=== PATIENT | male | born 1950 | race Caucasian/White ===

== ENCOUNTER 2018-05-26 19:30 | Emergency (ER) | payer MEDICARE ==
[~2018-05-26] VITALS: Ht 182.9 cm; Wt 76.2 kg
--- OUTSIDE RECORDS SUMMARY | ~2018-05-26 | XMS | Clinical Summary ---
Demographics + + + | Address | [address] | | | [place] [address] | + + + | Home Phone | | + + + | Preferred Language | Unknown | + + + | Marital Status | Unknown | + + + | Orthodoxy Affiliation | Unknown | + + + | Race | Unknown | + + + | Ethnic Group | Unknown | + + + Author + + + | Author | [facility] | | | and [place] | + + + | Organization | [facility] | | | and [place] | + + + | Address | Unknown | + + + | Phone | Unavailable | + + + Care Team Providers + +------+ + | Care Lab Head Name | Role | Phone | + +------+ + PP | Unavailable | + +------+ + Allergies Not on File Medications Not on file Active Problems Not on file Social History + +-------+ +--------+------+ | Tobacco Use | Types | Packs/Day | Years | Date | | | | | Used | | + +-------+ +--------+------+ | Never Assessed | | | | | + +-------+ +--------+------+ + + + | Sex Assigned at | Date Recorded | | | | + + + | Not on file | | + + + + + + + | Job Start Date | Occupation | Industry | + + + + | Not on file | Not on file | Not on file | + + + + + + + + | Travel History | Travel Start | Travel End | + + + + + + | No recent travel history available. | + + Plan of Treatment + + + + + | Health Maintenance | Due Date | Last Done | Comments | + + + + + | Vaccine: | | | | | Dtap/Tdap/Td (1 - | 2 | | | | Tdap) | | | | + + + + + | Vaccine: Zoster (1 | | | | | of 2) | 3 | | | + + + + + | Vaccine: | | | | | Pneumococcal 65+ | 8 | | | | Low/Medium Risk (1 | | | | | of 2 - PCV13) | | | | + + + + + | Vaccine: Influenza | | | | | (Season Ended) | 9 | | | + + + + + Results Not on filefrom Last 3 Months"
--- OUTSIDE RECORDS SUMMARY | ~2018-05-26 | XMS | Clinical Summary ---
Demographics + + + | Address | [address] | | | [place] [address] | + + + | Home Phone | | + + + | Preferred Language | Unknown | + + + | Marital Status | Unknown | + + + | Moravian Affiliation | Unknown | + + + | Race | Unknown | + + + | Ethnic Group | Unknown | + + + Author + + + | Author | [facility] | | | and [place] | + + + | Organization | [facility] | | | and [place] | + + + | Address | Unknown | + + + | Phone | Unavailable | + + + Care Team Providers + +------+ + | Care Resolution Agent Name | Role | Phone | + [...]
[~2018-05-26 19:30] MED LIST: METOPROLOL SUCC25 MG PO; PREDNISONE20 MG PO; PRILOSEC20 MG PO
[2018-05-26] MEDS ORDERED: ZANTAC 7575 MG PO (19:50)
--- NOTE | 2018-05-27 07:56 | EKG ---
[facility] [address] [address] Signed Sinus rhythm with 1st degree AV block Otherwise normal ECG No previous ECGs available Confirmed by ROGELIO FREGOSO MD ([id number]) on 05/27/2018 7:56:34 AM Electronically Signed By: ROGELIO FREGOSO MD 05/27/18 0756 PATIENT NAME: EMILIO YEBOAH Electrocardiogram DATE OF : 54 PHYSICIAN: ROGELIO FREGOSO MD REPORT #: [id number] REPORT IS CONFIDENTIAL AND NOT TO BE RELEASED WITHOUT AUTHORIZATION
== END 2018-05-26 21:25 | disposition home or self-care (01) ==
LOC: ED 19:30
DX: R06.00 Dyspnea, unspecified (principal); Z88.0 Allergy status to penicillin; Z88.5 Allergy status to narcotic agent; Z79.899 Other long term (current) drug therapy
CPT/HCPCS: 71045; 80053; 81001; 83735; 83880; 84484; 85025; 93005; 93010; 99285-25; J7030

== ENCOUNTER 2019-05-26 19:40 | Emergency (ER) | payer BC, MEDICARE ==
[~2019-05-26] VITALS: Ht 182.9 cm; Wt 76.2 kg
[~2019-05-26 19:40] MED LIST changes: +ZANTAC 7575 MG PO
[2019-05-26] MEDS ORDERED: PEPCID20 MG PO (19:47)
== END 2019-05-26 20:42 | disposition home or self-care (01) ==
LOC: ED 19:40
DX: T18.128A Food in esophagus causing other injury, initial encounter (principal); Z88.0 Allergy status to penicillin; X58.XXXA Exposure to other specified factors, initial encounter
CPT/HCPCS: 99283

== ENCOUNTER 2024-03-23 16:45 | Observation (INO) | payer MEDICARE, OTHER ==
[~2024-03-23] VITALS: Ht 182.9 cm; Wt 79.2 kg
[~2024-03-23 16:45] MED LIST changes: +PEPCID AC20 MG PO
[2024-03-23] MEDS ORDERED: ASPIRIN 81 MG CHEW PO ONE (17:00)
[2024-03-23 17:02] LABS: BASOPHILS 0.5 % (0-2); HEMATOCRIT 47.1 % (35.0-50.0); HEMOGLOBIN 16.3 g/dL (12.0-18.0); MCH 31.8 (27-36); MCHC 34.5 g/dl (30-36); MONOCYTES 9.5 % (0-12); PLATELET COUNT 193 K/uL (140-440); RBC 5.12 M/ul (4.3-5.7)
[2024-03-23 17:19] LABS: ALBUMIN 3.8 g/dL (3.4-5.0); ALBUMIN/GLOBULIN RATIO 1.15 (1.1-2.4); ANION GAP 12.7 (7-21); BILIRUBIN, TOTAL 0.6 ng/dL (0.2-1.0); BUN/CREATININE RATIO 19.76 (6.0-28.6); CALCIUM 8.7 mg/dL (8.5-10.1); CREATININE, SERUM 0.86 mg/dL (0.70-1.30); MAGNESIUM 1.8 mg/dL (1.8-2.4); POTASSIUM 3.7 mmol/L (3.5-5.1); PROTEIN, TOTAL 7.1 g/dL (6.4-8.2)
--- NOTE | 2024-03-23 19:01 | EKG ---
[facility] [address] [facility] [place] [address] Signed Sinus rhythm with 1st degree AV block Minimal voltage criteria for LVH, may be normal variant ( R in aVL ) Borderline ECG When compared with ECG of 23-MAR-2024 16:51, (Unconfirmed) Sinus rhythm has replaced bigeminy Questionable change in QRS duration Criteria for Septal infarct are no longer present Confirmed by Rose Flores MD ([id number]) on 03/23/2024 7:01:01 PM Electronically Signed By: ROSE FLORES MD 03/23/24 190 PATIENT NAME: EMILIO YEBOAH Electrocardiogram DATE OF : 54 PHYSICIAN: ROSE FLORES MD REPORT #: [id number] REPORT IS CONFIDENTIAL AND NOT TO BE RELEASED WITHOUT AUTHORIZATION
[2024-03-23] MEDS ORDERED: MAGNESIUM SULFATE 2 GM/50 ML BAG IV ONE (19:30)
[2024-03-23 20:30] VITALS: BP 161/99
[2024-03-23] MEDS ORDERED: ACETAMINOPHEN 325 MG TAB PO PRN ×2 (20:30)
[2024-03-23] MEDS ORDERED: ondansetron HCL 4 MG/2 ML VIAL IV PRN ×2 (20:30)
[2024-03-23] MEDS ORDERED: METOPROLOL TARTRATE 25 MG TAB PO SCH ×2 (21:00)
[2024-03-23 22:03] VITALS: BP 161/99
[2024-03-24] VITALS (11 sets, daily range): BP systolic 101–168; BP diastolic 66–94
[2024-03-24 05:50] LABS: BASOPHILS 0.9 % (0-2); EOSINOPHILS 7.5 % (0-6); HEMATOCRIT 44.8 % (35.0-50.0); HEMOGLOBIN 15.2 g/dL (12.0-18.0); LYMPHOCYTES 27.2 % (24-44); MCH 31.5 (27-36); MCV 92.6 fl (81-99); MONOCYTES 9.8 % (0-12); NEUTROPHILS 54.6 % (39-80); PLATELET COUNT 178 K/uL (140-440); RBC 4.83 M/ul (4.3-5.7); RDW 13.2 (10.5-15.0)
[2024-03-24 06:09] LABS: BUN/CREATININE RATIO 20.93 (6.0-28.6); CALCIUM 8.7 mg/dL (8.5-10.1); CREATININE, SERUM 0.86 mg/dL (0.70-1.30); MAGNESIUM 2.1 mg/dL (1.8-2.4)
[2024-03-24] MEDS ORDERED: FAMOTIDINE 20 MG TAB PO SCH ×2 (09:00)
[2024-03-24] MEDS ORDERED: METOPROLOL TARTRATE 25 MG TAB PO SCH ×2 (09:00)
[2024-03-24] MEDS ORDERED: ENOXAPARIN SODIUM 40 MG/0.4 ML SYR SUB-Q SCH ×2 (09:00)
[2024-03-24] MEDS ORDERED: TUMS200 MG PO (10:04)
[2024-03-24] MEDS ORDERED: [UNRECOGNIZED DRUG - OTHER] PO (10:06)
[2024-03-24] MEDS ORDERED: VITAMIN D350 MCG PO (10:07)
[2024-03-24] MEDS ORDERED: VITAMIN C500 M1 PO (10:07)
[2024-03-24] MEDS ORDERED: BEET ROOT500 MG PO (10:07)
[2024-03-24] MEDS ORDERED: PROSTATE HEALT1 EAC1 PO (10:08)
[2024-03-24] MEDS ORDERED: PHARMACY RENAL DOSE ADJUSTMENT 1 DOSE MISC PO SCH ×2 (12:00)
--- NOTE | 2024-03-24 13:27 | EKG ---
[facility] [address] [place] [address] Signed Sinus rhythm with premature ventricular complexes in a pattern of bigeminy Left ventricular hypertrophy with QRS widening and repolarization abnormality ( R in aVL ) Cannot rule out Septal infarct , age undetermined Abnormal ECG When compared with ECG of 23-MAR-2024 17:22, (Unconfirmed) Significant changes have occurred Reconfirmed by Rose Flores MD ([id number]) on 03/24/2024 1:27:15 PM Electronically Signed By: ROSE FLORES MD 03/23/24 1901 Electronically Signed By: ROSE FLORES MD 03/24/24 1327 PATIENT NAME: EMILIO YEBOAH Electrocardiogram DATE OF : 54 PHYSICIAN: ROSE FLORES MD REPORT #: [id number] REPORT IS CONFIDENTIAL AND NOT TO BE RELEASED WITHOUT AUTHORIZATION
--- NOTE | 2024-03-24 13:28 | EKG ---
[facility] [address] [place] [address] Signed Sinus rhythm with ventricular complexes in pattern of bigeminy Septal infarct , age undetermined Marked ST abnormality, possible inferolateral subendocardial injury Abnormal ECG When compared with ECG of 26-MAY-2018 19:36, Bigeminy has replaced normal sinus rhythm Questionable change in QRS duration Septal infarct is now present Reconfirmed by Rose Flores MD ([id number]) on 03/24/2024 1:28:07 PM Electronically Signed By: ROSE FLORES MD 03/23/24 1900 Electronically Signed By: ROSE FLORES MD 03/24/24 1328 PATIENT NAME: EMILIO YEBOAH Electrocardiogram DATE OF : 54 PHYSICIAN: ROSE FLORES MD REPORT #: [id number] REPORT IS CONFIDENTIAL AND NOT TO BE RELEASED WITHOUT AUTHORIZATION
[2024-03-25 01:23] VITALS: BP 139/77
[2024-03-25 05:10] VITALS: BP 153/74
[2024-03-25 05:52] LABS: BASOPHILS 0.5 % (0-2); EOSINOPHILS 6.5 % (0-6); HEMATOCRIT 45.2 % (35.0-50.0); HEMOGLOBIN 15.3 g/dL (12.0-18.0); LYMPHOCYTES 29.2 % (24-44); MCH 31.5 (27-36); MCHC 33.9 g/dl (30-36); MCV 92.9 fl (81-99); MONOCYTES 9.8 % (0-12); PLATELET COUNT 162 K/uL (140-440); RBC 4.87 M/ul (4.3-5.7); RDW 13.3 (10.5-15.0)
[2024-03-25 06:05] LABS: ANION GAP 10.9 (7-21); BUN/CREATININE RATIO 28.91 (6.0-28.6); CALCIUM 8.2 mg/dL (8.5-10.1); CREATININE, SERUM 0.83 mg/dL (0.70-1.30); MAGNESIUM 1.9 mg/dL (1.8-2.4); POTASSIUM 3.9 mmol/L (3.5-5.1)
[2024-03-25] MEDS ORDERED: POTASSIUM CHLORIDE 10 MEQ TABCR PO ONE (09:00)
[2024-03-25] MEDS ORDERED: MAGNESIUM CHLORIDE 64 MG TABCR PO ONE (09:00)
[2024-03-25 09:12] VITALS: BP 151/83
[2024-03-25 09:13] VITALS: BP 151/83
[2024-03-25] MEDS ORDERED: METOPROLOL TART25 MG PO (10:05)
--- NOTE | 2024-03-25 22:13 | EKG ---
[facility] [address] [facility] [place] [address] Signed Sinus tachycardia with 1st degree AV block with blocked premature atrial complexes with occasional premature ventricular complexes ST \T\ T wave abnormality, consider inferior ischemia Abnormal ECG When compared with ECG of 23-MAR-2024 17:23, premature atrial complexes are now present SD interval has increased QRS duration has decreased Minimal criteria for Septal infarct are no longer present ST no longer depressed in Lateral leads T wave inversion no longer evident in Lateral leads Confirmed by Cony Siddiqi MD () on 03/25/2024 10:13:08 PM Electronically Signed By: CONY SIDDIQI MD 03/25/24 2213 PATIENT NAME: EMILIO YEBOAH Electrocardiogram DATE OF : 54 PHYSICIAN: CONY SIDDIQI MD REPORT #: [id number] REPORT IS CONFIDENTIAL AND NOT TO BE RELEASED WITHOUT AUTHORIZATION
== END 2024-03-25 10:35 | disposition home or self-care (01) ==
LOC: ED 16:45 → MS 16:46
PROVIDERS: Emergency Medicine; ADMIT Student in an Organized Health Care Education/Training Program; ATTEND Student in an Organized Health Care Education/Training Program
DX: R00.8 Other abnormalities of heart beat (principal); I49.3 Ventricular premature depolarization; M25.511 Pain in right shoulder; K21.9 Gastro-esophageal reflux disease without esophagitis; Z79.899 Other long term (current) drug therapy; Z88.0 Allergy status to penicillin; Z88.5 Allergy status to narcotic agent; Z95.5 Presence of coronary angioplasty implant and graft
CPT/HCPCS: 36415; 71045; 73030; 80048; 80053; 83735; 84484; 85025; 93005; 93010; 96365; 96372; 97161; 97165; 99285-25; A9270; G0378; J1650; J3475